=== PATIENT | male | born 1945 | race Caucasian/White ===

== ENCOUNTER 2022-10-23 09:23 | Day surgery (SDC) | payer MEDICARE ==
[~2022-10-23] VITALS: Ht 177.8 cm; Wt 88.1 kg
[~2022-10-23 09:23] MED LIST: AMLO-314 PO; ASPI-611 PO; ATOR20TA PO; DIVA500T9 PO; LISI-644 PO; MIRA50TA PO; OXYC80TA37 PO
[2022-10-23] MEDS ORDERED: normal saline 1000ml 1,000 ML IV SCH ×2 (09:50→12:00)
[2022-10-23] MEDS ORDERED: TRAZ-251 PO (09:51)
[2022-10-23] MEDS ORDERED: OXYC1TAB17 PO (09:51)
[2022-10-23] MEDS ORDERED: MORP60TA77 PO (09:51)
[2022-10-23 09:55] VITALS: BP 174/72; PULSE 57; RESP 16; TEMP 97.8; O2SAT 98
[2022-10-23 10:24] LABS: BASOPHILS % (AUTO) 0.6 % (0-1); HEMATOCRIT 38.5 % (42.0-52.0); HEMOGLOBIN 13.4 g/dl (14.0-17.9); LYMPHOCYTES # (AUTO) 1.6 X10'3 (1.1-4.8); LYMPHOCYTES % (AUTO) 36.8 % (21-51); MEAN CORPUSCULAR HEMOGLOBIN 31.9 PG (27.0-31.0); MEAN CORPUSCULAR HGB CONC 34.8 g/dL (33.0-36.5); MEAN CORPUSCULAR VOLUME 91.9 FL (78-98); MEAN PLATELET VOLUME 8.4 FL (7.4-10.4); MONOCYTES # (AUTO) 0.4 X10'3 (0-0.9); MONOCYTES % (AUTO) 9.7 % (2-12); NEUTROPHILS # (AUTO) 2.3 X10'3 (1.8-7.7); NEUTROPHILS % (AUTO) 51.9 % (42-75); PLATELET COUNT 217 X10'3 (140-440); RED BLOOD COUNT 4.19 X10'6 (4.70-6.10); RED CELL DISTRIBUTION WIDTH 14.2 % (11.5-14.5); WHITE BLOOD COUNT 4.4 X10'3 (4.5-11.0)
[2022-10-23] MEDS ORDERED: midazolam 1 mg/ML 2ml injection ONE (10:24)
[2022-10-23] MEDS ORDERED: LIDOCAINE 2%/EPI 1:100,000 inj. Multi-dose 20 ML VIAL ONE (10:25)
[2022-10-23] MEDS ORDERED: fentaNYL/PF 50MCG/1 ML 2ML syringe ONE (10:25)
[2022-10-23 10:36] LABS: ALBUMIN 3.7 G/DL (3.4-5.0); ANION GAP 4 (8-16); BLOOD UREA NITROGEN 13 MG/DL (7-18); CALCIUM 9.1 MG/DL (8.5-10.1); CHLORIDE 104 MMOL/L (99-107); CREATININE 0.93 MG/DL (0.60-1.10); GLUCOSE 115 MG/DL (70-104); MAGNESIUM 2.1 MG/DL (1.5-2.4); SODIUM 140 MMOL/L (135-145); TOTAL CARBON DIOXIDE 32.1 MMOL/L (24-32); eCRCL 71 ML/MIN; eGFR 79 ML/MIN
[2022-10-23 10:39] LABS: INR 1.1 INR; PROTHROMBIN TIME 11.4 SECONDS (9.0-12.0)
[2022-10-23 11:30] VITALS: BP 146/73; PULSE 47; RESP 15; O2SAT 95
[2022-10-23 11:45] VITALS: BP 152/78; PULSE 54; RESP 17; O2SAT 96
[2022-10-23 12:00] VITALS: BP 139/89; PULSE 51; RESP 18; O2SAT 96
[2022-10-23 12:15] VITALS: BP 132/68; PULSE 48; RESP 17; O2SAT 96
[2022-10-23 12:45] VITALS: BP 134/64; PULSE 50; RESP 16; O2SAT 96
== END 2022-10-23 13:00 | disposition home or self-care (01) ==
LOC: SSTAY O 09:23
PROVIDERS: ATTEND Internal Medicine Cardiovascular Disease
DX: Z45.09 Encounter for adjustment and management of other cardiac device (principal); I25.118 Atherosclerotic heart disease of native coronary artery with other forms of angina pectoris; I48.0 Paroxysmal atrial fibrillation; I47.1 Supraventricular tachycardia; I10 Essential (primary) hypertension; E78.5 Hyperlipidemia, unspecified; G47.30 Sleep apnea, unspecified; G40.89 Other seizures; M19.90 Unspecified osteoarthritis, unspecified site; Z90.49 Acquired absence of other specified parts of digestive tract; Z98.890 Other specified postprocedural states; Z79.899 Other long term (current) drug therapy
CPT/HCPCS: 33286; 36415; 80048; 83735; 85025; 85610; J2250; J3010; J7030; 99152